=== PATIENT | female | born 1955 | race Caucasian/White ===

== ENCOUNTER 2021-11-26 12:25 | Emergency (ER) | payer MEDICARE, BC ==
[~2021-11-26] VITALS: Ht 170.2 cm; Wt 68.0 kg
--- NOTE | 2021-11-26 12:57 | RAD ---
EXAM: Right hand, 3 views. HISTORY: Injury. COMPARISON: None. FINDINGS: 3 views of the right hand are obtained. There is a mildly displaced intra-articular fractur e at the base of the fifth metacarpal. There is no foreign body. The alignment and joint spaces are u nremarkable. IMPRESSION: Mildly displaced fracture the base of the fifth metacarpal. Electronically signed by: Wandy Alexandre MD (11/26/2021 12:54 PM) [facility]
[2021-11-26] MEDS ORDERED: HYDR-2155 PO (13:13)
--- NOTE | 2021-11-26 13:13 | PHYS DOC ---
General Adult EDM: Chief Complaint: HAND PROBLEM HPI: HPI: Patient is a 66-year-old female who presents to the emergency department for right hand pain. Patient reports that she tripped and fell on the ulnar aspect of her right hand. She does report pain, swelling and ecchymosis to that aspect of her hand. She denies any decreased range of motion or decreased sensation in her extremity. (SANGEETA DHILLON APRN) Review of Systems: Review of Systems: Musculoskeletal: See HPI Integument: See HPI Neurologic: See HPI (SANGEETA DHILLON APRN) Physical Exam: PE: Constitutional: Well developed, well nourished, no acute distress, non-toxic appearance. [] HENT: Normocephalic, atraumatic, bilateral external ears normal, oropharynx moist, no oral exudates, nose normal. [] Eyes: PERRL, EOMI, conjunctiva normal, no discharge. [] Neck: Normal range of motion, no stridor Cardiovascular: Normal peripheral perfusion Lungs & Thorax: Normal work of breathing, no tachypnea Abdomen: Soft and flat Skin: Warm, dry, no erythema, no rash. [] Back: Normal range of motion Extremities: No tenderness, no cyanosis, no clubbing, ROM intact, no edema. [] Right hand: Swelling, ecchymosis and pain noted to the ulnar aspect of patient's right hand, range of motion intact, neuro intact Neurologic: Alert and oriented X 3, normal motor function, normal sensory function, no focal deficits noted. [] Psychologic: Affect normal, judgement normal, mood normal. [] (SANGEETA DHILLON APRN) EKG: EKG: [] (SANGEETA DHILLON APRN) Radiology/Procedures: Radiology/Procedures: []PROCEDURE: HAND RIGHT 3V EXAM: Right hand, 3 views. HISTORY: Injury. COMPARISON: None. FINDINGS: 3 views of the right hand are obtained. There is a mildly displaced intra-articular fracture at the base of the fifth metacarpal. There is no foreign body. The alignment and joint spaces are unremarkable. IMPRESSION: Mildly displaced fracture the base of the fifth metacarpal. Electronically signed by: Wandy Alexandre MD (11/26/2021 12:54 PM) [facility] DICTATED AND SIGNED BY: WANDY ALEXANDRE MD DATE: 11/26/21 1253 CC: SANGEETA DHILLON APRN; PCP,UNKNOWN ~MTH0 0 (SANGEETA DHILLON APRN) Heart Score: C/O Chest Pain: N/A Risk Factors: Risk Factors: DM, Current or recent (<one month) smoker, HTN, HLP, family history of CAD, obesity. Risk Scores: Score 0 - 3: 2.5% MACE over next 6 weeks - Discharge Home Score 4 - 6: 20.3% MACE over next 6 weeks - Admit for Clinical Observation Score 7 - 10: 72.7% MACE over next 6 weeks - Early Invasive Strategies (SANGEETA DHILLON APRN) Course & Med Decision Making: Course & Med Decision Making Pertinent Labs and Imaging studies reviewed. (See chart for de Patient presents to the emergency department for right hand pain after falling onto it. An x-ray was performed that showed a fracture of the right fifth m etatarsal at the base. Patient was placed in a splint. Patient tolerated procedure. Patient is neurovascularly intact pre and post placement. Patient educated on splint care and fracture care. She was given a referral for orthopedic doctor. Discharged home with pain medication. I discussed with patient all findings and diagnostic testing as well as the need to follow-up with PCP for further evaluation and treatment or return to the ER if any new or worsening symptoms. Strict return precautions were also discussed at length. Patient voiced understanding and agreement with the plan. Patient is hemodynamically stable at the time of disposition. (SANGEETA DHILLON APRN) Dragon Disclaimer: Dragon Disclaimer: This electronic medical record was generated, in whole or in part, using a voice recognition dictation system. (SANGEETA DHILLON APRN) Attending Co-Sign The patient was seen and interviewed as well as examined at the bedside. The chart was reviewed. The case was discussed. Agree with the plan of care. (BRANDON MCDOWELL DO) Departure Departure: Impression: Primary Impression: Metacarpal bone fracture Qualified Codes: S62.316A - Displaced fracture of base of fifth metacarpal bone, right hand, initial encounter for closed fracture Disposition: HOME / SELF CARE / HOMELESS Condition: GOOD Referrals: PCP,NO (PCP) Patient Instructions: Hand Fracture, Fifth Metacarpal Additional Instructions: You were seen in the emergency department today for hand pain following a fall. An x-ray was performed that did show a fracture. You had a splint placed to help with pain and healing. You will need to follow-up with the orthopedic doctors in the orthopedic clinic as soon as possible, see referral attached, your radiology report was printed for you so that you can take this into the doctor with you. Please see attached information regarding follow-up physician. You should perform range of motion exercises to prevent stiffness of your joints. Splints help with the pain and can promote healing but immobility can cause chronic pain over time. Please refer to these attached instructions regarding range of motion exercises. Keep the splint clean and dry avoid getting it wet. If the splint gets wet you will need to have it replaced. You should use ice and elevation to help with the swelling and pain. For the first 24 hours apply ice 20 minutes on 20 minutes off 4 times per day. Ensure that ice is in a plastic bag as to not get the splint wet. You may take NSAID medications (ibuprofen, naproxen) to help with the pain you can take the pain medication that you are being discharged home with which is hydrocodone and tylenol in a combination tablet, do not take any additional tylenol with this and caution taking this medication when you need to be alert, driving a vehicle or with alcohol as it does cause sedation. Please return to the emergency department if you develop any of the following symptoms: Increasing pain that does not improve with treatments. New numbness or tingling Warmth, redness, skin discoloration, skin breakdown, drainage from under splint or near splinted area. Increasing inability to move your extremity or digits. Foul odor coming from splint Fevers or chills Nausea or vomiting Persistent lightheadedness We would be happy to see you for any other concerning symptoms regarding your splinted extremity. Scripts Hydrocodone Bit/Acetaminophen (HYDROCODONE-APAP 5-325 ) 1 Each Tablet 1 TAB PO PRN Q6HRS PRN for PAIN for 2 Days, #8 TAB 0 Refills Prov: SANGEETA DHILLON APRN 11/26/21 SANGEETA DHILLON APRN Nov 26, 2021 13:13 BRANDON MCDOWELL DO Nov 27, 2021 06:32
[2021-11-26 15:13] VITALS: BP 176/92
== END 2021-11-26 14:08 | disposition home or self-care (01) ==
LOC: ER 12:25
DX: S62.316A Displaced fracture of base of fifth metacarpal bone, right hand, initial encounter for closed fracture (principal); W01.0XXA Fall on same level from slipping, tripping and stumbling without subsequent striking against object, initial encounter; Y93.89 Activity, other specified; Y92.89 Other specified places as the place of occurrence of the external cause; Y99.8 Other external cause status
CPT/HCPCS: 29125; 73130; 99283